=== PATIENT | female | born 1990 | race Caucasian/White ===

== ENCOUNTER 2019-04-22 00:12 | Observation (INO) ==
[2019-04-22] MEDS ORDERED: Ringers Solution, Lactated 1,000 ML ONE (00:43)
[2019-04-22] MEDS ORDERED: Oxytocin 20 units/ LR 1000 mL 20 UNIT/1,000 ML BAG IVC ONE (00:45)
[2019-04-22] MEDS ORDERED: *HR* FentaNYL (PF) 100 MCG/2 ML VIAL IVP ONE (00:50)
[2019-04-22] MEDS ORDERED: ceFAZolin 2,000 MG in 0.9 % Sodium Chloride 100 ML IVPB ONE (01:00)
[2019-04-22] MEDS ORDERED: Doxycycline 100 MG in 0.9 % Sodium Chloride Mini Bag 100 ML IVPB ONE (01:00)
[2019-04-22] MEDS ORDERED: *HR* HYDROmorphone (PF) 1 MG/ML SYRINGE IVP PRN (01:24)
[2019-04-22] MEDS ORDERED: *HR* OxyCODONE Immed Rel 5 MG TABLET PO PRN (01:24)
[2019-04-22] MEDS ORDERED: Ondansetron 4 MG/2 ML VIAL IVP ONE (01:24)
[2019-04-22 01:30] LABS: Basophils # 0.1 K/mcL (0.0-0.2); Basophils % 0.2 %; Eosinophils # 0.1 K/mcL (0.0-0.6); Eosinophils % 0.6 %; Hematocrit 35.4 % (35.3-44.9); Hemoglobin 12.6 g/dL (11.5-15.4); Immature Granulocytes % 0.6 % (0-4); Lymphocytes # 2.9 K/mcL (0.6-4.6); Lymphocytes % 12.4 %; Mean Corpuscular HGB Conc 35.6 g/dL (31.6-35.5); Mean Corpuscular Hemoglobin 34.1 pg (28.0-33.3); Mean Corpuscular Volume 95.7 fL (83.0-100.0); Mean Platelet Volume 10.8 fL (9.4-12.4); Monocytes # 1.4 K/mcL (0.0-1.3); Monocytes % 5.8 %; Neutrophils # 18.9 K/mcL (1.6-8.9); Platelet Count 232 K/mcL (140-400); Red Cell Distribution Width 11.9 % (11.5-14.5); Segmented Neutrophils % 80.4 %; White Blood Count 23.5 K/mcL (4.3-11.1)
[2019-04-22] MEDS ORDERED: Propofol 500 MG/50 ML INFUS..BTL ONE (01:30)
[2019-04-22] MEDS ORDERED: *HR* Succinylcholine 200 MG/10 ML VIAL IVP ONE (01:30)
[2019-04-22] MEDS ORDERED: *HR* FentaNYL (PF) 250 MCG/5 ML VIAL ONE (01:30)
[2019-04-22] MEDS ORDERED: 0.9 % Sodium Chloride 1,000 ML ONE (01:38)
[2019-04-22] MEDS ORDERED: Ondansetron 4 MG/2 ML VIAL ONE (01:41)
[2019-04-22] MEDS ORDERED: Dexamethasone 4 MG/ML VIAL ONE (01:41)
[2019-04-22] MEDS ORDERED: Lidocaine -MPF 2% 5 ML VIAL ONE (01:54)
[2019-04-22] MEDS ORDERED: CeFAZolin 2,000 MG/50 ML BAG IVPB ONE (02:00)
[2019-04-22 03:42] LABS: Amphetamine Screen,Urine Negative ng/mL (Cutoff=1000); Barbiturate Screen,Urine Negative ng/mL (Cutoff=200); Benzodiazepines Screen,Urine Negative ng/mL (Cutoff=200); Cannabinoid Screen,Urine Positive ng/mL (Cutoff = 50); Cocaine Screen,Urine Negative ng/mL (Cutoff= 300); Opiate Screen,Urine Positive ng/mL (Cutoff=300); Phencyclidine Screen,Urine Negative ng/mL (Cutoff=25)
[2019-04-22] MEDS ORDERED: Acetaminophen 325 MG TABLET PO PRN (05:24)
[2019-04-22] MEDS ORDERED: Measles/Mumps/Rubella Vacc 0.5 ML VIAL SQ PRN (05:24)
[2019-04-22] MEDS ORDERED: Rho Immune Globulin 1,500 UNIT SYRINGE IM PRN (05:24)
[2019-04-22] MEDS ORDERED: Ibuprofen 600 MG TABLET PO PRN (05:24)
[2019-04-22] MEDS ORDERED: Oxytocin 20 units/ LR 1000 mL 20 UNIT/1,000 ML BAG IVC SCH (05:24)
[2019-04-22] MEDS ORDERED: 0.9 % Sodium Chloride 500 ML ONE (05:44)
[2019-04-22 06:14] LABS: Basophils % 0.2 %; Hematocrit 27.3 % (35.3-44.9); Immature Granulocytes % 0.9 % (0-4); Lymphocytes # 1.2 K/mcL (0.6-4.6); Lymphocytes % 5.8 %; Mean Corpuscular HGB Conc 34.1 g/dL (31.6-35.5); Mean Corpuscular Hemoglobin 33.9 pg (28.0-33.3); Mean Corpuscular Volume 99.6 fL (83.0-100.0); Mean Platelet Volume 10.5 fL (9.4-12.4); Monocytes # 0.4 K/mcL (0.0-1.3); Monocytes % 1.9 %; Neutrophils # 19.2 K/mcL (1.6-8.9); Platelet Count 175 K/mcL (140-400); Red Blood Count 2.74 M/mcL (3.82-4.97); Red Cell Distribution Width 11.8 % (11.5-14.5); Segmented Neutrophils % 91.2 %; White Blood Count 21.1 K/mcL (4.3-11.1)
[2019-04-22 06:15] LABS: Hemoglobin 9.3 g/dL (11.5-15.4)
[2019-04-22 07:36] VITALS: BP 101/64
[2019-04-22] MEDS ORDERED: Prenatal Vit/FA 1 EACH TABLET PO SCH (09:00)
[2019-04-22] MEDS ORDERED: Methylergonovine 0.2 MG/ML AMPUL IM ONE (11:29)
[2019-04-22] MEDS ORDERED: miSOPROStoL 100 MCG TABLET PO ONE (11:29)
== END 2019-04-22 11:30 | disposition home or self-care (01) ==
LOC: 1NENULAB → 1NENUOBS 05:26
PROVIDERS: ADMIT Obstetrics & Gynecology; ATTEND Obstetrics & Gynecology